=== PATIENT | male | born 1980 | race African-American/Black ===

== ENCOUNTER 2017-04-17 09:30 | Emergency (ER) | payer OTHER ==
[~2017-04-17] VITALS: Ht 167.6 cm; Wt 73.7 kg
[2017-04-17 11:32] LABS: HEMATOCRIT 44.2 % (38.0-50.0); MCH 29.1 PG (29.0-34.0); MCHC 33.3 G/DL (30.0-36.0); MCV 87.5 FL (86-99); MEAN PLAT.VOLUME 9.3 uM^3 (9.0-12.4); PLATELET COUNT 255 K/uL (156-360); RED BLOOD COUNT 5.05 M/uL (4.00-5.50); WHITE BLOOD COUNT 10.4 K/uL (4.1-10.2)
[2017-04-17 11:48] LABS: CHLORIDE 109 mEq/L (99-109); SODIUM 139 mEq/L (136-147)
[2017-04-17 11:49] LABS: GLUCOSE 88 mg/dL (70-99)
[2017-04-17 11:51] LABS: ANION GAP 8 MEQ/L (2-14)
[2017-04-17 11:54] LABS: UREA NITROGEN (BUN) 10 mg/dL (9-23)
[2017-04-17 11:56] LABS: GFR ESTIMATE (CALCULATED) > 59 mL/min/
[2017-04-17] MEDS ORDERED: VENTOLIN HFA18 GM IH (13:41)
[2017-04-17] MEDS ORDERED: ZITHROMAX Z-PA250 MG PO (13:41)
[2017-04-17] MEDS ORDERED: PREDNISONE20 MG PO (13:41)
[2017-04-17 14:00] VITALS: BP 120/67
== END 2017-04-17 14:20 | disposition home or self-care (01) ==
LOC: EME 09:30
PROVIDERS: Emergency Medicine
DX: J40 Bronchitis, not specified as acute or chronic (principal); F17.200 Nicotine dependence, unspecified, uncomplicated
CPT/HCPCS: 71020; 80048; 85027; 94640; 99281; 99284; J2405; J7030